=== PATIENT | female | born 1995 | race Caucasian/White ===

== ENCOUNTER 2017-06-11 16:03 | Emergency (ER) | payer MEDICAID ==
[2017-06-11] MEDS: HYDROCODONE/APAP (5/325) TAB PO (20:25)
== END 2017-06-11 22:30 | disposition home or self-care (01) ==
LOC: FTE 16:03
DX: S99.912A Unspecified injury of left ankle, initial encounter (principal); M54.5 Low back pain; J45.909 Unspecified asthma, uncomplicated; W19.XXXA Unspecified fall, initial encounter; Y92.322 Soccer field as the place of occurrence of the external cause
CPT/HCPCS: 72100; 73610; 73630-LT; 99284-25

== ENCOUNTER 2018-11-10 19:17 | Emergency (ER) | payer MEDICAID ==
[2018-11-10] MEDS: ONDANSETRON 4 MG INJ IV (20:25)
[2018-11-10] MEDS: KETOROLAC 15 MG INJ IV (20:25)
[2018-11-10] MEDS: SOD CHLORIDE 0.9% 1,000 ML IV (20:25)
[2018-11-10 20:34] LABS: ADD MAN DIFF? NO
[2018-11-10 20:38] LABS: BASOPHILS % 0.7 % (0.0-2.0); EOSINOPHILS # 0.2 10^3/ul (0.0-0.5); EOSINOPHILS % 3.3 % (0.0-7.0); HEMOGLOBIN 11.1 g/dl (12.0-16.0); LYMPHOCYTES # 1.8 10^3/ul (0.8-2.9); LYMPHOCYTES % 33.3 % (15.0-51.0); MEAN CORPUSCULAR HEMOGLOBIN 26.7 pg (29.0-33.0); MEAN CORPUSCULAR HGB CONC 31.7 g/dl (32.0-37.0); MEAN CORPUSCULAR VOLUME 84.3 fl (82.0-101.0); MEAN PLATELET VOLUME 11.5 fl (7.4-10.4); MONOCYTE # 0.8 10^3/ul (0.3-0.9); NEUTROPHIL # 2.6 10^3/ul (1.6-7.5); NEUTROPHILS % 47.5 % (39.0-77.0); PLATELET COUNT 309 10^3/UL (140-415); RED BLOOD COUNT 4.15 10^6/ul (4.20-5.40); RED CELL DISTRIBUTION WIDTH 13.8 % (11.5-14.5)
[2018-11-10 20:38] LABS: WHITE BLOOD COUNT 5.5 10^3/ul (4.8-10.8)
[2018-11-10 20:57] LABS: ALANINE AMINOTRANSFERASE 14 IU/L (13-69); ALBUMIN 4.5 g/dl (3.3-4.9); ALBUMIN/GLOBULIN RATIO 1.15; ALKALINE PHOSPHATASE 66 IU/L (42-121); ANION GAP 10 (5-13); ASPARTATE AMINO TRANSFERASE 21 IU/L (15-46); BILIRUBIN,INDIRECT 0.3 mg/dl (0-1.1); BILIRUBIN,TOTAL 0.3 mg/dl (0.2-1.3); BLOOD UREA NITROGEN 9 mg/dl (7-20); CALCIUM 9.5 mg/dl (8.4-10.2); CARBON DIOXIDE 25 mmol/L (21-31); CHLORIDE 108 mmol/L (97-110); CREATININE 0.72 mg/dl (0.44-1.00); Estimated GFR > 60 mL/min (>60); GLUCOSE 133 mg/dl (70-220); LIPASE 72 U/L (23-300); SODIUM 143 mmol/L (135-144); TOTAL PROTEIN 8.4 g/dl (6.1-8.1)
[2018-11-10 21:06] LABS: ADD UMIC NO; ETHANOL < 10.0 mg/dl (0-0); UR ASCORBIC ACID 20 mg/dL (NEGATIVE); UR BILIRUBIN (Dip) NEGATIVE (NEGATIVE); UR BLOOD (Dip) NEGATIVE (NEGATIVE); UR CLARITY SLIGHTLY CLOUDY (CLEAR); UR COLOR YELLOW (YELLOW); UR GLUCOSE (Dip) NEGATIVE (NEGATIVE); UR KETONES (Dip) NEGATIVE (NEGATIVE); UR LEUKOCYTE ESTERASE (Dip) NEGATIVE Leu/ul (NEGATIVE); UR NITRITE (Dip) NEGATIVE (NEGATIVE); UR RBC 1 /HPF (0-5); UR SPECIFIC GRAVITY (Dip) 1.023 (1.003-1.030); UR SQUAMOUS EPITHELIAL CELL FEW /HPF (FEW); UR TOTAL PROTEIN (Dip) NEGATIVE (NEGATIVE); UR UROBILINOGEN (Dip) NEGATIVE (NEGATIVE); UR WBC 4 /HPF (0-5)
[2018-11-10 21:08] LABS: TROPONIN-I < 0.012 ng/ml (0.000-0.120)
== END 2018-11-10 21:47 | disposition home or self-care (01) ==
LOC: E/R 19:17
DX: R07.9 Chest pain, unspecified (principal); R11.2 Nausea with vomiting, unspecified; R19.7 Diarrhea, unspecified; J45.901 Unspecified asthma with (acute) exacerbation
CPT/HCPCS: 36415; 71045; 80053; 80307; 81001; 81003; 81025; 83690; 84484; 85025; 93005; 96361; 96374; 96375; 99285-25